=== PATIENT | male | born 1980 | race Two or more races ===

== ENCOUNTER 2022-07-19 09:28 | Emergency (ER) | payer OTHER ==
[~2022-07-19] VITALS: Ht 160 cm; Wt 72.6 kg
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
--- NOTE | 2022-07-19 09:45 | NUR ---
Dr. Larose at Bedside
[2022-07-19] MEDS ORDERED: HYDROCODONE/APAP 10/325MG TABLET PO ONE (10:00)
[2022-07-19] MEDS ORDERED: HYDROCODONE/APAP 10/325MG TABLET ONE (10:05)
--- NOTE | 2022-07-19 10:07 | NUR ---
it field technician at bedside.
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
--- NOTE | 2022-07-19 14:27 | NUR ---
Dr. Larose at bedside for re-eval.
[2022-07-19] MEDS ORDERED: HYDR-3980 PO (14:34)
--- NOTE | 2022-07-19 15:00 | NUR ---
Patient discharged to home in stable condition and cructches provided. Written and verbal after care instructions given. Patient verbalizes understanding of instruction.
[2022-07-19 15:30] VITALS: BP 133/75
== END 2022-07-19 15:31 | disposition home or self-care (01) ==
LOC: ER 09:31
DX: S82.041A Displaced comminuted fracture of right patella, initial encounter for closed fracture (principal); Z79.899 Other long term (current) drug therapy; W11.XXXA Fall on and from ladder, initial encounter; Y93.89 Activity, other specified; Y92.89 Other specified places as the place of occurrence of the external cause; Y99.8 Other external cause status
CPT/HCPCS: 73564-TC